=== PATIENT | female | born 1935 | race Caucasian/White ===

== ENCOUNTER 2017-10-26 12:00 | Inpatient (IN) | payer OTHER ==
[2017-10-26] MEDS ORDERED: PROTONIX40 M1 (14:26)
[2017-10-26] MEDS ORDERED: COZAAR50 MG (14:26)
[2017-10-26] MEDS ORDERED: FERROCITE324 MG (14:26)
== END 2017-11-06 13:16 | disposition home or self-care (01) | DRG 331 ==
LOC: SURH 11-01 11:58 → O/R 11-01 11:58 → SURH 11-01 12:00 → SURG 11-02 14:28 → SURH 11-02 17:32
PROVIDERS: Colon & Rectal Surgery
PROC: 0DTP4ZZ Resection of Rectum, Percutaneous Endoscopic Approach (ICD-10-PCS; 2017-11-01)
PROC: 07TC4ZZ Resection of Pelvis Lymphatic, Percutaneous Endoscopic Approach (ICD-10-PCS; 2017-11-01)
PROC: 0D1B4Z4 Bypass Ileum to Cutaneous, Percutaneous Endoscopic Approach (ICD-10-PCS; 2017-11-01)
PROC: 0DTE4ZZ Resection of Large Intestine, Percutaneous Endoscopic Approach (ICD-10-PCS; principal; 2017-11-01 14:00)
PROC: 3E0F7GC Introduction of Other Therapeutic Substance into Respiratory Tract, Via Natural or Artificial Opening (ICD-10-PCS; 2017-11-02)
PROC: 30233N1 Transfusion of Nonautologous Red Blood Cells into Peripheral Vein, Percutaneous Approach (ICD-10-PCS; 2017-11-02)
DX: C18.2 Malignant neoplasm of ascending colon (principal); R59.0 Localized enlarged lymph nodes; I10 Essential (primary) hypertension; I25.10 Atherosclerotic heart disease of native coronary artery without angina pectoris; J44.9 Chronic obstructive pulmonary disease, unspecified; D64.89 Other specified anemias